=== PATIENT | female | born 1995 | race Asian ===

== ENCOUNTER → 2022-12-25 | Emergency (ER) | payer MEDICAID ==
[~2022-12-25] VITALS: Ht 144.8 cm; Wt 61.0 kg
[2022-12-25 12:42] VITALS: BP 134/84
[2022-12-25 14:14] LABS: CLARITY,URINE CLEAR (Clear); COLOR,URINE STRAW (Yellow); GLUCOSE, URINE NEGATIVE (Neg); KETONES,URINE NEGATIVE (Neg); LEUKOCYTE ESTERASE ,URINE NEGATIVE (Neg); NITRITES, URINE NEGATIVE (Neg); OCCULT BLOOD,URINE NEGATIVE (Neg); PROTEIN,URINE NEGATIVE (Neg); UROBILINOGEN,URINE 0.2 E.U/dL (0.2-1.0)
[2022-12-25 14:15] LABS: URINE HCG NEGATIVE (NEG)
[2022-12-25 14:16] LABS: UA COLLECTION TYPE CLN CATCH MIDSTREAM
== END | disposition home or self-care (01) ==
LOC: ER 12:36
DX: R10.84 Generalized abdominal pain (principal)
CPT/HCPCS: 76830; 76856; 81003; 81025; 93976; 99284